=== PATIENT | female | born 1995 | race Caucasian/White ===

== ENCOUNTER 2017-11-29 13:40 | Emergency (ER) | payer OTHER ==
[2017-11-29 14:14] VITALS: BP 117/70
--- NOTE | 2017-11-29 14:22 | UC ---
UC General HPI - HPI Summary HPI Summary: ill for over a week with sinus symptoms, much worse the past 3 days with sinus pain, pressure and drainage. - History of Current Complaint Chief Complaint: UCGeneralIllness Stated Complaint: CONGESTION,SINUSES Time Seen by Provider: 11/29/17 14:16 Hx Obtained From: Patient Hx Last Menstrual Period: 11/09/17 Onset/Duration: Gradual Onset Pain Intensity: 5 Aggravating: nothing Alleviating: nothing - Allergy/Home Medications Allergies/Adverse Reactions: Allergies Allergy/AdvReac Type Severity Reaction Status Date / Time penicillin V Allergy Intermediate Hives Verified 11/29/17 14:14 Home Medications: Home Medications Amphetamine MIXED SALTS TAB* [Adderall TAB*] 15 mg PO DAILY 11/29/17 [History Confirmed 11/29/17] PMH/Surg Hx/FS Hx/Imm Hx - Additional Past Medical History Additional PMH: ADHD, sinusitis only once 2016 - Surgical History Surgical History: None - Family History Known Family History: Positive: None - Social History Occupation: Student Lives: Dormitory/Roommates Alcohol Use: Weekly Substance Use Type: None Smoking Status (MU): Never Smoked Tobacco - Immunization History Vaccination Up to Date: Yes Review of Systems Constitutional: Negative Skin: Negative Eyes: Negative ENT: Nasal Discharge, Sinus Congestion, Sinus Pain/Tenderness Respiratory: Negative Cardiovascular: Negative Gastrointestinal: Negative Genitourinary: Negative Motor: Negative Neurovascular: Negative Musculoskeletal: Negative Neurological: Negative Psychological: Negative Is Patient Immunocompromised?: No All Other Systems Reviewed And Are Negative: Yes Physical Exam Triage Information Reviewed: Yes Appearance: Well-Appearing Vital Signs: Initial Vital Signs Temp 98.3 F 11/29/17 14:09 Pulse 89 11/29/17 14:09 Resp 18 11/29/17 14:09 BP 117/70 11/29/17 14:09 Pulse Ox 100 11/29/17 14:09 Vital Signs Reviewed: Yes Eyes: Positive: Conjunctiva Clear ENT: Positive: Pharynx normal, Nasal congestion, Nasal drainage - yellow, TMs normal, Sinus tenderness Neck: Positive: Supple, Nontender, No Lymphadenopathy Respiratory: Positive: Lungs clear, Normal breath sounds Cardiovascular: Positive: RRR, No Murmur Abdomen Description: Positive: Nontender, No Organomegaly, Soft Bowel Sounds: Positive: Present Musculoskeletal: Positive: ROM Intact Neurological: Positive: Alert Psychological: Positive: Age Appropriate Behavior Skin Exam: Normal Course/Dx - Differential Dx - Multi-Symptom Provider Diagnoses: sinusitis Discharge - Sign-Out/Discharge Documenting (check all that apply): Discharge - Discharge Plan Condition: Stable Disposition: HOME Prescriptions: DOXYcycline CAP(*) [DOXYcycline 100MG CAP(*)] 100 mg PO BID #20 cap Patient Education Materials: Sinusitis (ED) Referrals: Non Staff,Doctor [Primary Care Provider] - Additional Instructions: FOLLOW UP [facility] IN 7 DAYS FOR A RECHECK OR SOONER IF WORSE. CONSIDER FLONASE OVER THE COUNTER PER LABEL. - Billing Disposition and Condition Condition: STABLE Disposition: HOME
== END 2017-11-29 14:31 | disposition home or self-care (01) ==
LOC: UCCORT 13:40
DX: J32.9 Chronic sinusitis, unspecified (principal); Z88.0 Allergy status to penicillin; F90.9 Attention-deficit hyperactivity disorder, unspecified type
CPT/HCPCS: 99202; G0463

== ENCOUNTER 2018-05-22 07:14 | Emergency (ER) | payer OTHER ==
[2018-05-22 07:35] VITALS: BP 113/60
--- NOTE | 2018-05-22 07:56 | UC ---
Respiratory Complaint HPI - HPI Summary HPI Summary: cough x 1 weeks cough is harsh , non-productive , harsh, high fever started 5 days ago, fatigue, no chest pain ,no shortness of breath, no sore throat - History of Current Complaint Chief Complaint: UCRespiratory Stated Complaint: UPPER RESPITORY,FEVER Time Seen by Provider: 05/22/18 07:42 Hx Obtained From: Patient Hx Last Menstrual Period: 05/18/18 ?: No Onset/Duration: Gradual Onset, Lasting Days - 7, Still Present, Worse Since - 5 days ago Timing: Constant Severity Initially: Moderate Severity Currently: Severe Pain Intensity: 4 Character: Cough: Nonproductive Aggravating Factors: Exertion, Deep Breaths Alleviating Factors: Nothing Associated Signs And Symptoms: Positive: Fever, Chills. Negative: Pleuritic Chest Pain, Hemoptysis, Dizziness, Calf Pain, Calf Swelling, URI, Nasal Congestion, Hoarseness, Sinus Discomfort - Allergies/Home Medications Allergies/Adverse Reactions: Allergies Allergy/AdvReac Type Severity Reaction Status Date / Time penicillin V Allergy Intermediate Hives Verified 05/22/18 07:30 Home Medications: Home Medications D-Methorphan/PE/Acetaminophen [Daytime Cold-Flu Relief Sftgl] 1 each PO ONCE 10/08 [History Confirmed 05/22/18] Escitalopram Oxalate [Lexapro 10 mg] 10 mg PO DAILY 05/22/18 [History Confirmed 05/22/18] Spironolactone TAB* [Aldactone TAB*] 50 mg PO TID 05/22/18 [History Confirmed ] PMH/Surg Hx/FS Hx/Imm Hx Previously Healthy: Yes - Surgical History Surgical History: Yes Surgery Procedure, Year, and Place: dental work - Family History Known Family History: Positive: None Negative: Diabetes - Social History Alcohol Use: Weekly Alcohol Amount: weekends Substance Use Type: None Smoking Status (MU): Never Smoked Tobacco - Immunization History Vaccination Up to Date: Yes Review of Systems Constitutional: Fever, Chills, Fatigue Skin: Negative Eyes: Negative ENT: Negative Respiratory: Cough Cardiovascular: Negative Gastrointestinal: Negative Is Patient Immunocompromised?: No All Other Systems Reviewed And Are Negative: Yes Physical Exam Triage Information Reviewed: Yes Appearance: Ill-Appearing, Pain Distress Vital Signs: Initial Vital Signs Temp 102.3 F 05/22/18 07:30 Pulse 108 05/22/18 07:30 Resp 18 05/22/18 07:30 BP 113/60 05/22/18 07:30 Pulse Ox 99 05/22/18 07:30 Vital Signs Reviewed: Yes Eyes: Positive: Conjunctiva Clear ENT: Positive: Normal ENT inspection, Hearing grossly normal, Pharynx normal Neck: Positive: Supple, Nontender, No Lymphadenopathy Respiratory: Positive: Chest non-tender, No accessory muscle use, Crackles - left lower lungs Cardiovascular: Positive: Tachycardia Abdominal Exam: Normal Abdomen Description: Positive: Nontender, Soft Bowel Sounds: Positive: Present Skin Exam: Normal UC Diagnostic Evaluation - Laboratory O2 Sat by Pulse Oximetry: 99 Diagnostic Studies Comment: chest xray : IMPRESSION: #. LEFT lower lobe pneumonia. Respiratory Course/Dx - Differential Dx/Diagnosis Provider Diagnoses: left lower pneumonia Discharge - Sign-Out/Discharge Documenting (check all that apply): Patient Departure All imaging exams completed and their final reports reviewed: Yes - Discharge Plan Condition: Stable Disposition: HOME Prescriptions: Levofloxacin TAB* [Levaquin TAB*] 500 mg PO DAILY #10 tab Patient Education Materials: Community Acquired Pneumonia (ED) Referrals: No Primary Care Phys,NOPCP [Primary Care Provider] - 5 Days - Billing Disposition and Condition Condition: STABLE Disposition: Home
--- NOTE | 2018-05-22 08:33 | RAD ---
INDICATION: One week cough and fever. COMPARISON: No relevant prior exams available on the [facility] for comparison. TECHNIQUE: Dual energy PA and routine lateral views of the chest were obtained. REPORT: Confluent alveolar consolidation at the LEFT lower lobe most marked at the posterior and lateral basal segments. Negative for volume loss. Negative for pleural effusions or pneumothorax. The heart, pulmonary vasculature, and mediastinal contours are unremarkable. IMPRESSION: #. LEFT lower lobe pneumonia.
== END 2018-05-22 08:50 | disposition home or self-care (01) ==
LOC: UCCORT 07:14
DX: J18.9 Pneumonia, unspecified organism (principal); Z88.0 Allergy status to penicillin
CPT/HCPCS: 71046; 99212; G0463

== ENCOUNTER 2018-05-28 12:42 | Emergency (ER) | payer OTHER ==
[2018-05-28 13:03] VITALS: BP 112/71
--- NOTE | 2018-05-28 14:05 | ED ---
Respiratory - History of Current Complaint Chief Complaint: UCGeneralIllness Stated Complaint: FOLLOW-UP (STUDENT NO PCP) Time Seen by Provider: 05/28/18 13:55 Hx Obtained From: Patient Onset/Duration: Lasting Days Initial Severity: Severe Current Severity: Mild Pain Intensity: 0 Character: Cough (Nonproductive) Sputum Amount: None Aggravating Factor(s): Nothing - Allergy/Home Medications Allergies/Adverse Reactions: Allergies Allergy/AdvReac Type Severity Reaction Status Date / Time penicillin V Allergy Intermediate Hives Verified 05/22/18 07:30 PMH/Surg Hx/FS Hx/Imm Hx Previously Healthy: Yes - Surgical History Surgery Procedure, Year, and Place: dental work Infectious Disease History: No Infectious Disease History: Denies: Traveled Outside the [place] in Last 30 Days - Family History Known Family History: Positive: None Negative: Diabetes - Social History Alcohol Use: None Alcohol Amount: weekends Substance Use Type: Reports: None Smoking Status (MU): Never Smoked Tobacco Review of Systems Constitutional: Negative Eyes: Negative ENT: Negative Cardiovascular: Negative Positive: Shortness Of Breath Gastrointestinal: Negative Genitourinary: Negative Musculoskeletal: Negative All Other Systems Reviewed And Are Negative: Yes Physical Exam Triage Information Reviewed: Yes Vital Signs On Initial Exam: Initial Vitals Temp Pulse Resp BP Pulse Ox 36.5 C 72 16 112/71 99 05/28/18 13:00 05/28/18 13:00 05/28/18 13:00 05/28/18 13:00 05/28/18 13:00 Vital Signs Reviewed: Yes Appearance: Positive: Well-Appearing Skin: Positive: Warm Eyes: Positive: Normal ENT: Positive: Normal ENT inspection Respiratory/Lung Sounds: Positive: Rales - left lower lobe Cardiovascular: Positive: Normal Abdomen Description: Positive: Nontender Bowel Sounds: Positive: Present Musculoskeletal: Positive: Normal Diagnostics - Vital Signs Vital Signs Temp Pulse Resp BP Pulse Ox 05/28/18 13:00 36.5 C 72 16 112/71 99 - Laboratory Lab Statement: Any lab studies that have been ordered have been reviewed, and results considered in the medical decision making process. Disposition - Diagnoses Provider Diagnoses: Left lower lobe pneumonia Discharge - Sign-Out/Discharge Documenting (check all that apply): Patient Departure All imaging exams completed and their final reports reviewed: Yes - Discharge Plan Condition: Good Disposition: HOME Patient Education Materials: Pneumonia (ED) Referrals: No Primary Care Phys,NOPCP [Primary Care Provider] - Additional Instructions: xray almost entirely better - Billing Disposition and Condition Condition: GOOD Disposition: Home
--- NOTE | 2018-05-28 14:15 | RAD ---
HISTORY: follow up left lower lobe pneumonia COMPARISONS: May 22, 2018 VIEWS: 4: Frontal dual-energy and lateral views of the chest. FINDINGS: CARDIOMEDIASTINAL SILHOUETTE: The cardiomediastinal silhouette is normal. CHRIS: The chris are normal. PLEURA: The costophrenic angles are sharp. No pleural abnormalities are noted. LUNG PARENCHYMA: There is persistent but improved patchy alveolar opacification of the left lower lobe. ABDOMEN: The upper abdomen is clear. There is no subphrenic gas. BONES AND SOFT TISSUES: No bone or soft tissue abnormalities are noted. OTHER: None. IMPRESSION: PERSISTENT BUT IMPROVED CONSOLIDATION INVOLVING THE LEFT LOWER LOBE. RECOMMEND CONTINUED FOLLOW-UP UNTIL RESOLUTION TO EXCLUDE UNDERLYING PULMONARY PARENCHYMAL PATHOLOGY.
== END 2018-05-28 14:17 | disposition home or self-care (01) ==
LOC: UCCORT 12:42
DX: J18.9 Pneumonia, unspecified organism (principal); Z88.0 Allergy status to penicillin
CPT/HCPCS: 71046; 99211; G0463